=== PATIENT | male | born 1945 | race Caucasian/White ===

== ENCOUNTER 2023-07-07 11:09 | Inpatient (IN) | payer MEDICARE, OTHER ==
[~2023-07-07] VITALS: Ht 175.3 cm; Wt 95.8 kg
[2023-07-07] VITALS (15 sets, daily range): BP systolic 120–161; BP diastolic 58–77; PULSE 61–73; RESP 18–19; TEMP 97.8–98.3; O2SAT 98
[~2023-07-07 11:09] MED LIST: ASPIRIN 81 MG CHEWABLE TABLET PO ONE; DIAZEPAM 5 MG TABLET PO ONE; DiphenhydrAMINE HCL 50 MG CAPSULE PO ONE; SODIUM CHLORIDE 0.9% 1,000 ML IV ONE; SODIUM CHLORIDE 0.9% 1,000 ML ONE
[2023-07-07] MEDS ORDERED: NIFE-129 PO (12:18)
[2023-07-07] MEDS ORDERED: EMPA10TA3 PO (12:18)
[2023-07-07] MEDS ORDERED: MEMA10TA11 PO (12:18)
[2023-07-07] MEDS ORDERED: LEVO100 PO (12:18)
[2023-07-07] MEDS ORDERED: FURO20 PO (12:18)
[2023-07-07] MEDS ORDERED: ACET-3385 PO (12:18)
[2023-07-07] MEDS ORDERED: ASPI-1450 PO (12:18)
[2023-07-07] MEDS ORDERED: MIRA50TA PO (12:18)
[2023-07-07] MEDS ORDERED: CHOL500013 PO (12:18)
[2023-07-07] MEDS ORDERED: LOSA-382 PO (12:18)
[2023-07-07] MEDS ORDERED: SUMA100T21 PO (12:18)
[2023-07-07] MEDS ORDERED: ROSU20TA73 PO (12:18)
[2023-07-07] MEDS ORDERED: ASPIRIN 81 MG CHEWABLE TABLET ONE (14:16)
[2023-07-07] MEDS ORDERED: DiphenhydrAMINE HCL 50 MG CAPSULE ONE (14:17)
[2023-07-07] MEDS ORDERED: DIAZEPAM 5 MG TABLET ONE (14:17)
[2023-07-07] MEDS ORDERED: LIDOCAINE/PF 1% 30 ML VIAL ONE (15:43)
[2023-07-07] MEDS ORDERED: SODIUM BICARBONATE 50 MEQ/50 ML VIAL ONE (15:44)
[2023-07-07] MEDS ORDERED: IOHEXOL 300 MG/ML 100 ML VIAL ONE (15:44)
[2023-07-07 15:47] LABS: GLUCOMETER DEV NAME(LOC) SDS.; GLUCOSE,POINT OF CARE 228 MG/DL (70-110)
[2023-07-07] MEDS ORDERED: HEPARIN SODIUM 1000 UNITS/NS 1,000 ML ONE (16:06)
[2023-07-07] MEDS ORDERED: FentaNYL CITRATE PF 100 MCG/2 ML VIAL ONE (16:07)
[2023-07-07] MEDS ORDERED: MIDAZOLAM HCL 2 MG/2 ML VIAL ONE (16:07)
[2023-07-07] MEDS ORDERED: IOHEXOL 300 MG/ML 100 ML VIAL IARTER ONE (16:45)
[2023-07-07] MEDS ORDERED: HEPARIN SODIUM 1000 UNITS/NS 1,000 ML IARTER ONE (16:45)
[2023-07-07] MEDS ORDERED: MIDAZOLAM HCL 2 MG/2 ML VIAL IVP ONE (16:45)
[2023-07-07] MEDS ORDERED: FentaNYL CITRATE PF 100 MCG/2 ML VIAL IVP ONE (16:45)
[2023-07-07] MEDS ORDERED: LIDOCAINE 1% 30 ML/SOD BICARB 8.4% 4 ML SQ ONE (16:45)
[2023-07-07] MEDS ORDERED: ERGO500054 PO (17:09)
[2023-07-07] MEDS ORDERED: INSU100I15 SQ (17:09)
[2023-07-07] MEDS ORDERED: DULA4.5P SQ (17:09)
[2023-07-07] MEDS ORDERED: ACETAMINOPHEN 325 MG TABLET PO PRN (17:15)
[2023-07-07] MEDS ORDERED: SODIUM CHLORIDE 0.9% 1,000 ML IV ONE ×2 (17:15→17:30)
[2023-07-07] MEDS ORDERED: BISACODYL 10 MG RECTAL RECTAL SUPPOSITORY PR PRN (17:15)
[2023-07-07] MEDS ORDERED: ONDANSETRON HCL 4 MG/2 ML VIAL IVP PRN (17:15)
[2023-07-07] MEDS ORDERED: SUMAtriptan SUCCINATE 100 MG TABLET PO PRN (17:15)
[2023-07-07] MEDS ORDERED: HYDROCODONE/ACETAMINOPHEN 5-325 MG TABLET PO PRN (17:15)
[2023-07-07] MEDS ORDERED: ZOLPIDEM TARTRATE 5 MG TABLET PO PRN (17:15)
[2023-07-07] MEDS ORDERED: MAGNESIUM HYDROXIDE SUSPENSION 30 ML UDCUP PO PRN (17:15)
[2023-07-07] MEDS ORDERED: MORPHINE SULFATE 2 MG/ML SYRINGE IVP PRN (17:15)
[2023-07-07] MEDS ORDERED: DEXTROSE 50%-WATER 25 GM/50 ML SYRINGE IVP PRN (20:45)
[2023-07-07] MEDS: DOCUSATE SODIUM 100 MG CAPSULE PO SCH (21:24)
[2023-07-07] MEDS: INSULIN LISPRO 100 UNITS/ML SQ PRN (21:26)
[2023-07-07 23:11] LABS: GLUCOMETER DEV NAME(LOC) 5S.1B; GLUCOSE,POINT OF CARE 278 MG/DL (70-110)
[2023-07-08 00:45] VITALS: BP 136/76; PULSE 72; RESP 17; TEMP 98
[2023-07-08 05:19] VITALS: BP 144/81; PULSE 77; RESP 17; TEMP 98
[2023-07-08] MEDS: INSULIN LISPRO 100 UNITS/ML SQ PRN ×2 (05:55→11:50)
[2023-07-08] MEDS ORDERED: LEVOTHYROXINE SODIUM 100 MCG TABLET PO SCH (06:30)
[2023-07-08 07:27] LABS: BASOPHILS % (AUTO) 0.9 % (0.0-2.0); EOSINOPHILS % (AUTO) 2.5 % (1.0-6.0); HEMATOCRIT 40.3 % (41-53); HEMOGLOBIN 12.9 g/dL (13.5-17.5); LYMPHOCYTES # (AUTO) 1.2 K/uL (1.0-4.8); LYMPHOCYTES % (AUTO) 19.8 % (22.0-44.0); MEAN CORPUSCULAR HGB CONC 31.9 G/dL (31.0-37.0); MEAN CORPUSCULAR VOLUME 88 fL (80-100); MONOCYTES # (AUTO) 0.6 K/uL (0.1-1.0); NEUTROPHILS # (AUTO) 3.9 K/uL (1.8-7.7); NEUTROPHILS % (AUTO) 66.8 % (40.0-70.0); PLATELET COUNT (AUTO) 241 K/uL (150-450); RED CELL DISTRIBUTION WIDTH 14.5 % (11.5-14.5); WHITE BLOOD COUNT (AUTO) 5.8 K/uL (4.5-11.0)
[2023-07-08 07:46] LABS: CREATININE 1.95 mg/dL (0.60-1.30); POTASSIUM 5.2 mmol/L (3.5-5.1)
[2023-07-08] MEDS ORDERED: HEPARIN SODIUM,PORCINE 5,000 UNITS/ML VIAL SQ SCH (08:00)
[2023-07-08 08:16] LABS: GLUCOMETER DEV NAME(LOC) 5N.1C; GLUCOSE,POINT OF CARE 184 MG/DL (70-110)
[2023-07-08 08:43] VITALS: BP 142/66; PULSE 72; RESP 20; TEMP 98.3
[2023-07-08] MEDS: DOCUSATE SODIUM 100 MG CAPSULE PO SCH (08:59)
[2023-07-08] MEDS ORDERED: ASPIRIN 81 MG CHEWABLE TABLET PO SCH (09:00)
[2023-07-08] MEDS ORDERED: CHOLECALCIFEROL (VIT D3) 5,000 [125 MCG] UNITS CAPSULE PO SCH (09:00)
[2023-07-08] MEDS ORDERED: ROSUVASTATIN CALCIUM 20 MG TABLET PO SCH (09:00)
[2023-07-08] MEDS ORDERED: MEMANTINE HCL 10 MG TABLET PO SCH (09:00)
[2023-07-08] MEDS ORDERED: EMPAGLIFLOZIN 10 MG TABLET PO SCH (09:00)
[2023-07-08] MEDS ORDERED: NIFEdipine 60 MG ER TABLET PO SCH (09:00)
[2023-07-08] MEDS ORDERED: LOSARTAN POTASSIUM 50 MG TABLET PO SCH (09:00)
[2023-07-08] MEDS ORDERED: PANTOPRAZOLE SODIUM 40 MG DR TABLET PO SCH (09:00)
[2023-07-08] MEDS ORDERED: FUROSEMIDE 20 MG TABLET PO SCH (09:00)
[2023-07-08 11:29] VITALS: BP 138/78; PULSE 67; RESP 18; TEMP 98.1
[2023-07-08 11:57] LABS: GLUCOMETER DEV NAME(LOC) 5S.1B; GLUCOSE,POINT OF CARE 245 MG/DL (70-110)
== END 2023-07-08 13:20 | disposition home or self-care (01) | DRG 287 ==
LOC: CATHLAB 11:09 → 5S 19:00
PROVIDERS: ADMIT Internal Medicine; ATTEND Internal Medicine
PROC: 4A023N7 Measurement of Cardiac Sampling and Pressure, Left Heart, Percutaneous Approach (ICD-10-PCS; principal; 2023-07-07)
PROC: B2111ZZ Fluoroscopy of Multiple Coronary Arteries using Low Osmolar Contrast (ICD-10-PCS; 2023-07-07)
PROC: B2151ZZ Fluoroscopy of Left Heart using Low Osmolar Contrast (ICD-10-PCS; 2023-07-07)
PROC: B3101ZZ Fluoroscopy of Thoracic Aorta using Low Osmolar Contrast (ICD-10-PCS; 2023-07-07)
PROC: B41C1ZZ Fluoroscopy of Pelvic Arteries using Low Osmolar Contrast (ICD-10-PCS; 2023-07-07)
DX: I25.10 Atherosclerotic heart disease of native coronary artery without angina pectoris (principal); I13.0 Hypertensive heart and chronic kidney disease with heart failure and stage 1 through stage 4 chronic kidney disease, or unspecified chronic kidney disease; I50.9 Heart failure, unspecified; N18.9 Chronic kidney disease, unspecified; K21.9 Gastro-esophageal reflux disease without esophagitis; G43.909 Migraine, unspecified, not intractable, without status migrainosus; F03.90 Unspecified dementia, unspecified severity, without behavioral disturbance, psychotic disturbance, mood disturbance, and anxiety; E11.22 Type 2 diabetes mellitus with diabetic chronic kidney disease; E78.5 Hyperlipidemia, unspecified; E11.65 Type 2 diabetes mellitus with hyperglycemia; Z79.899 Other long term (current) drug therapy; Z79.82 Long term (current) use of aspirin; Z95.5 Presence of coronary angioplasty implant and graft
CPT/HCPCS: 80048; 82962; 85025; 93005; J1644; J2250; J3010; J3490; J7030; Q9967